=== PATIENT | male | born 1970 ===

== ENCOUNTER 2018-05-02 09:19 | Emergency (ER) | payer OTHER, SELFPAY ==
[2018-05-02 09:25] VITALS: BMI 36.0
[2018-05-02 09:49] VITALS: RESP 16
[2018-05-02] MEDS ORDERED: EnalaprilAT 1.25 mg/ml Inj IVP ONE (10:11)
[2018-05-02] MEDS ORDERED: EnalaprilAT 1.25 mg/ml Inj ONE (10:15)
--- NOTE | 2018-05-02 10:33 | ED PDOC ---
HPI: Trauma/Fall - HPI Time Seen by Provider: 05/02/18 09:48 Chief Complaint (Nursing): Trauma Chief Complaint (Provider): Neck Pain History Per: Patient History/Exam Limitations: no limitations Onset/Duration Of Symptoms: Days (x15) Additional Complaint(s): 48 y/o male with no significant PMHx presenting for evaluation of neck pain s/p slip and fall x15 days. Patient states he was getting out of the bathtub when he slipped and hit the back of his neck on the toilet seat. He denies any LOC. Patient says he feels tired when he bends his neck forward. PMD: None reported Past Medical History Reviewed: Historical Data, Nursing Documentation, Vital Signs Vital Signs: Last Vital Signs Temp 98 F 05/02/18 09:23 Pulse 75 05/02/18 10:30 Resp 16 05/02/18 09:45 BP 157/104 H 05/02/18 10:30 Pulse Ox 98 05/02/18 09:23 - Medical History PMH: No Chronic Diseases - Surgical History Surgical History: No Surg Hx - Family History Family History: States: Unknown Family Hx - Social History Current smoker - smoking cessation education provided: No Alcohol: Occasional Drugs: Denies - Home Medications Home Medications: Ambulatory Orders Medication Instructions Recorded Enalapril Maleate [Vasotec] 10 mg PO DAILY #30 tab 05/02/18 - Allergies Allergies/Adverse Reactions: Allergies Allergy/AdvReac Type Severity Reaction Status Date / Time No Known Allergies Allergy Verified 02/07/15 10:14 Physical Exam - Reviewed Nursing Documentation Reviewed: Yes Vital Signs Reviewed: Yes - Physical Exam Appears: Positive for: Non-toxic, No Acute Distress Head Exam: Positive for: ATRAUMATIC, NORMAL INSPECTION, NORMOCEPHALIC Skin: Positive for: Normal Color, Warm, Dry. Negative for: Rash Eye Exam: Positive for: EOMI, Normal appearance, PERRL Neck: Negative for: Normal (mild tenderness to cervical spine) Cardiovascular/Chest: Positive for: Regular Rate, Rhythm. Negative for: Murmur Respiratory: Positive for: Normal Breath Sounds. Negative for: Respiratory Distress Gastrointestinal/Abdominal: Positive for: Normal Exam, Soft. Negative for: Tenderness Back: Positive for: Normal Inspection. Negative for: L CVA Tenderness, R CVA Tenderness, Vertebral Tenderness Extremity: Positive for: Normal ROM. Negative for: Pedal Edema, Deformity Neurologic/Psych: Positive for: Alert, Oriented. Negative for: Motor/Sensory Deficits - Laboratory Results Result Diagrams: 05/02/18 10:30 05/02/18 10:30 - ECG O2 Sat by Pulse Oximetry: 98 (RA) Pulse Ox Interpretation: Normal Medical Decision Making Medical Decision Makin:08 Impression: Back pain, muscle spasms Plan: -EKG -BMP -Urine dip -CBC -X-ray cervical spine -Heplock insertion -Reevaluation EKG as read by me: SR with normal axis at 83 bpm, T-inversions in 1L, V5, V6, Q- waves in V1, V2, and Lead 3 Scribe Attestation: Documented by Corby Dubon, acting as a scribe for Adriana Singh MD. Provider Scribe Attestation: All medical record entries made by the Scribe were at my direction and personally dictated by me. I have reviewed the chart and agree that the record accurately reflects my personal performance of the history, physical exam, medical decision making, and the department course for this patient. I have also personally directed, reviewed, and agree with the discharge instructions and disposition. 12.30p patient's bp controlled. Patient asked again on symptoms of chest pain, chest pressure, shortness of breath, nausea. He denies all these. He denies having had symptoms in the past suggestive of cardiac pain. He denies family h/ o heart disease. 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 He does not exercise outside of work. Troponin is normal. Will discharge and stress outpatient followup. Advised patient to return to ER if he develops cardiac type chest pain. Disposition - Clinical Impression Clinical Impression: Hypertension, Abnormal EKG - Patient ED Disposition Is Patient to be Admitted: No Doctor Will See Patient In The: Office - Disposition Referrals: [facility] [Outside] [facility] [Outside] Disposition: Routine/Home Disposition Time: 13:10 Condition: STABLE Prescriptions: Enalapril Maleate [Vasotec] 10 mg PO DAILY #30 tab Instructions: High Blood Pressure in Adults, Electrocardiogram Forms: [facility] [facility] ([place] Citizen) Print Language: GRENADIAN - POA Present On Arrival: Falls Or Trauma
[2018-05-02 10:41] LABS: BASO # 0.1 K/uL (0.0-0.2); BASO % 0.5 % (0.0-2.0); EOS # 0.2 K/uL (0.0-0.7); EOS % 1.8 % (0.0-4.0); HEMOGLOBIN 15.2 g/dL (12.0-18.0); LYMPH # 2.8 K/uL (1.0-4.3); LYMPH % 27.6 % (20.0-40.0); MEAN CELL VOLUME 85.5 fl (80.0-94.0); MEAN CORPUSCULAR HEMOGLOBIN 29.6 pg (27.0-31.0); MEAN CORPUSCULAR HGB CONC 34.6 g/dL (33.0-37.0); MEAN PLATELET VOLUME 8.2 fl (7.2-11.7); MONO # 0.7 K/uL (0.0-0.8); NEUT # 6.3 K/uL (1.8-7.0); NEUT % 63.1 % (50.0-75.0); NRBC % 0.1 % (0.0-0.0); RBC 5.13 Mil/uL (4.40-5.90)
[2018-05-02 10:51] LABS: BLOOD UREA NITROGEN 16 mg/dl (9-20); CALCIUM 9.4 mg/dL (8.4-10.2); GFR AFRICAN-AMERICAN > 60; GFR NON-AFRICAN AMERICAN > 60
--- NOTE | 2018-05-02 12:01 | RAD ---
Date of service: 05/02/2018 PROCEDURE: Cervical Spine Radiographs. HISTORY: Pain. COMPARISON: None. FINDINGS: BONES: Alignment maintained. No fracture. Dens Intact. DISC SPACES: Normal. SOFT TISSUES: Normal. No prevertebral soft tissue swelling. OTHER FINDINGS: [id number] degenerative right C4 root foraminal stenosis appreciated with remaining neural foramina widely patent bilaterally otherwise. IMPRESSION: No fracture or spondylolisthesis appreciated. A [id number] right C4 degenerative foraminal stenosis is identified.
[2018-05-02 13:36] VITALS: BP 152/105; PULSE 69; TEMP 97.8; O2SAT 94
--- NOTE | 2018-05-06 10:18 | CARD ---
APPROVED REPORT Date of service: 05/02/2018 EKG Measurement Heart [id number] <Conclusion> Normal sinus rhythm Possible Left atrial enlargement Septal infarct, age undetermined T wave abnormality, consider lateral ischemia Abnormal ECG
== END 2018-05-02 13:32 | disposition home or self-care (01) ==
LOC: H.ER 09:19
DX: M54.2 Cervicalgia (principal); I10 Essential (primary) hypertension; R94.31 Abnormal electrocardiogram [ECG] [EKG]